=== PATIENT | male | born 1965 | race Caucasian/White ===

== ENCOUNTER → 2021-02-09 | Day surgery (SDC) | payer OTHER ==
[~2021-02-09] VITALS: Ht 175.3 cm; Wt 93.0 kg
[~2021-02-09] MED LIST: BENICAR *OUT OF20 MG PO; NEXIUM40 MG PO; NORCO 5-325 TA1 EACH PO; ONE DAILY COMP1 EACH PO; WELLBUTRIN XL300 MG PO; ZETIA10 MG PO
[2021-02-09 09:02] LABS: HCT 49.4 % (42.0-52.0); HGB 16.3 g/dl (13.2-18.0); MCV 84.7 fL (78.0-100.0); MPV 9.6 fL (6.0-9.5); RBC 5.83 M/uL (4.70-6.00); WBC 6.3 K/uL (4.0-10.5)
[2021-02-09 09:18] LABS: BUN/CREAT RATIO (CALC) 13.6 RATIO; CREATININE 1.1 mg/dL (0.67-1.17); POTASSIUM 4.4 mmol/L (3.5-5.1)
== END | disposition home or self-care (01) ==
LOC: FAS 08:28
PROVIDERS: Legal Medicine
DX: S83.242A Other tear of medial meniscus, current injury, left knee, initial encounter (principal); S83.282A Other tear of lateral meniscus, current injury, left knee, initial encounter; M94.262 Chondromalacia, left knee; I10 Essential (primary) hypertension; E78.00 Pure hypercholesterolemia, unspecified; K21.9 Gastro-esophageal reflux disease without esophagitis; G47.30 Sleep apnea, unspecified; M19.90 Unspecified osteoarthritis, unspecified site; Z99.89 Dependence on other enabling machines and devices; Z79.899 Other long term (current) drug therapy; X58.XXXA Exposure to other specified factors, initial encounter
CPT/HCPCS: 36415; 80048; 93005; J0690; J1100; J1170; J1885; J2250; J2274; J2405; J2704; J3010; J7120